=== PATIENT | male | born 1955 | race Caucasian/White ===

== ENCOUNTER 2018-06-18 18:08 | Emergency (ER) | payer MEDICARE, BC ==
[2018-06-18] MEDS ORDERED: Diphtheria,Pertussis(Acell),Tetanus Vaccine 0.5 ML Syringe IM ONE (18:29)
[2018-06-18] MEDS ORDERED: cefTRIAXone 1 GM Vial IM ONE (18:29)
[2018-06-18] MEDS ORDERED: Lidocaine 1% 10 ML MDV INJECT ONE (18:30)
--- NOTE | 2018-06-18 18:32 | EDM.PDOC ---
ED HPI GENERAL MEDICAL PROBLEM - General Chief Complaint: Laceration Stated Complaint: CUT L INDEX FINGER Time Seen by Provider: 06/18/18 18:31 Source of Information: Reports: Patient - History of Present Illness INITIAL COMMENTS - FREE TEXT/NARRATIVE: HISTORY AND PHYSICAL: History of present illness: [Patient presents after an injury to his left index finger involving a chop saw , does not appear to have bone involvement however we are getting an x-ray to confirm this, but he did avulse a 1 cm of tissue away from the lateral and palmar aspect of the second digit, tendon function is intact flexor and extensor digit is neurovascularly intact Lesion bled well however nonbleeding on arrival here No fever nausea vomiting chills sweats no chest pain shortness breath headache dizziness palpitation no bowel or urine symptoms ] Review of systems: As per history of present illness and below otherwise all systems reviewed and negative. Past medical history: As per history of present illness and as reviewed below otherwise noncontributory. Surgical history: As per history of present illness and as reviewed below otherwise noncontributory. Social history: No reported history of drug or alcohol abuse. Family history: As per history of present illness and as reviewed below otherwise noncontributory. Physical exam: HEENT: Atraumatic, normocephalic, pupils reactive, negative for conjunctival pallor or scleral icterus, mucous membranes moist, throat clear, neck supple, nontender, trachea midline. Lungs: Clear to auscultation, breath sounds equal bilaterally, chest nontender. Heart: S1S2, regular, negative for clicks, rubs, or JVD. Abdomen: Soft, nondistended, nontender. Negative for masses or hepatosplenomegaly. Negative for costovertebral tenderness. Pelvis: Stable nontender. Genitourinary: Deferred. Rectal: Deferred. Extremities: Atraumatic, negative for cords or calf pain. Neurovascular unremarkable. Neuro: Awake, alert, oriented. Cranial nerves II through XII unremarkable. Cerebellum unremarkable. Motor and sensory unremarkable throughout. Exam nonfocal. Skin as per history of present illness otherwise unremarkable Diagnostics: [X-ray left second digit ] Therapeutics: [Tetanus status is updated 1 g of Rocephin Lidocaine Keflex 500 by mouth twice a day #20 no refill ( wound cleansed and Explored Bacitracin Telfa tube dressing Biocclusive dressing with avulsed tissue Follow-up with Dr. Holt ] Impression: Avulsion of soft tissue, left second digit definitive disposition and diagnosis as appropriate pending reevaluation and review of above. - Related Data Allergies Allergy/AdvReac Type Severity Reaction Status Date / Time No Known Allergies Allergy Verified 06/18/18 18:21 Home Meds: Home Meds Ezetimibe 10 mg PO DAILY 06/18/18 [History] Lisinopril 10 mg PO DAILY 06/18/18 [History] atorvaSTATin [Lipitor] 40 mg PO DAILY 06/18/18 [History] Past Medical History Cardiovascular History: Reports: High Cholesterol, Hypertension - Infectious Disease History Infectious Disease History: Reports: Chicken Pox, Measles Social & Family History - Family History Family Medical History: Noncontributory - Tobacco Use Smoking Status *Q: Former Smoker Used Tobacco, but Quit: Yes Month/Year Tobacco Last Used: quit 4 years ago - Recreational Drug Use Recreational Drug Use: No ED ROS GENERAL - Review of Systems Review Of Systems: See Below ED EXAM, SKIN/RASH Exam: See Below Course - Vital Signs Last Recorded V/S: Last Vital Signs Temp 98.1 F 06/18/18 18:18 Pulse 78 06/18/18 18:18 Resp 16 06/18/18 18:18 BP 163/94 H 06/18/18 18:18 Pulse Ox 96 06/18/18 18:18 - Orders/Labs/Meds Orders: Active Orders 24 hr Category Date Time Status Vaccines to be Administered [RC] PER UNIT ROUTINE Care 06/18/18 18:30 Active Fingers Second Digit Lt F1 [CR] Stat Exams 06/18/18 18:30 Taken Meds: Medications Discontinued Medications Generic Name Dose Route Start Last Admin Trade Name Freq PRN Reason Stop Dose Admin Bacitracin 1 dose 06/18/18 19:02 Bacitracin Oint 1 Gm TOP 06/18/18 19:03 ONETIME ONE Ceftriaxone Sodium 1 gm 06/18/18 18:29 06/18/18 18:53 Rocephin IM 06/18/18 18:30 1 gm ONETIME ONE Administration Diphtheria/Tetanus/Acell Pertussis 0.5 ml 06/18/18 18:29 06/18/18 18:53 Adacel IM 06/18/18 18:30 0.5 ml .ONCE ONE Administration Lidocaine HCl Confirm 06/18/18 18:35 06/18/18 18:54 Xylocaine-Mpf 1% Administered 06/18/18 18:36 Not Given Dose 10 mls @ as directed .ROUTE .STK-MED ONE Lidocaine HCl 10 ml 06/18/18 18:30 06/18/18 18:53 Xylocaine 1% INJECT 06/18/18 18:31 10 ml ONETIME ONE Administration Departure - Departure Time of Disposition: 19:10 Disposition: Home, Self-Care 01 Condition: Good Clinical Impression: Avulsion of soft tissue - Discharge Information Referrals: Jovany Fish MD [Primary Care Provider] - Forms: ED Department Discharge Additional Instructions: Medication as prescribed Return if symptoms persist or worsen Follow-up with hand specialist, call phone number below to schedule appropriate follow-up [facility] [address], [address] [place] [address] The following information is given to patients seen in the emergency department who are being discharged to home. This information is to outline your options for follow-up care. We provide all patients seen in our emergency department with a follow-up referral. The need for follow-up, as well as the timing and circumstances, are variable depending upon the specifics of your emergency department visit. If you don't have a primary care physician on staff, we will provide you with a referral. We always advise you to contact your personal physician following an emergency department visit to inform them of the circumstance of the visit and for follow-up with them and/or the need for any referrals to a consulting specialist. The emergency department will also refer you to a specialist when appropriate. This referral assures that you have the opportunity for follow-up care with a specialist. All of these measure are taken in an effort to provide you with optimal care, which includes your follow-up. Under all circumstances we always encourage you to contact your private physician who remains a resource for coordinating your care. When calling for follow-up care, please make the office aware that this follow-up is from your recent emergency room visit. If for any reason you are refused follow-up, please contact the [facility] emergency department at and asked to speak to the emergency department charge nurse. - My Orders Last 24 Hours: My Active Orders 06/18/18 18:30 Vaccines to be Administered [RC] PER UNIT ROUTINE Fingers Second Digit Lt F1 [CR] Stat - Assessment/Plan Last 24 Hours: My Active Orders 06/18/18 18:30 Vaccines to be Administered [RC] PER UNIT ROUTINE Fingers Second Digit Lt F1 [CR] Stat
[2018-06-18] MEDS ORDERED: Bacitracin Oint 1 GM U/D Packet TOP ONE (19:02)
--- NOTE | 2018-06-18 20:02 | CR ---
INDICATION: Laceration to the 2nd finger. COMPARISON: None available. FINDINGS: The left 2nd finger was examined with PA, lateral and oblique views for a total of three views. There is no sign of fracture or dislocation. There are deep lacerations to the radial aspect of the 2nd finger overlying the head of the middle phalanx and the base of the middle phalanx. There is no sign of radiopaque foreign body. There is no sign of any associated osseous injury. The soft tissues elsewhere in the finger are intact. No significant degenerative changes are seen. IMPRESSION: Deep lacerations of the radial aspect of the midportion of the 2nd finger with no sign of any radiopaque foreign body or osseous injury. Normal appearance of the osseous structures of the 2nd finger. Dictated by Jovan Harper MD @ Jun 18 2018 7:59PM Signed by Dr. Jovan Harper @ Jun 18 2018 8:01PM
== END 2018-06-18 19:25 | disposition home or self-care (01) ==
LOC: MW.ED 18:08
DX: S61.201A Unspecified open wound of left index finger without damage to nail, initial encounter (principal); E78.00 Pure hypercholesterolemia, unspecified; I10 Essential (primary) hypertension; Z79.899 Other long term (current) drug therapy; Z23 Encounter for immunization; W27.0XXA Contact with workbench tool, initial encounter
CPT/HCPCS: 73140; 90471; 90715; 96372; 99283; J0696; J2001